=== PATIENT | male | born 1985 | race Caucasian/White ===

== ENCOUNTER 2021-07-17 14:46 | Emergency (ER) | payer OTHER ==
[~2021-07-17 14:46] MED LIST: COREG 3.125M3.125 MG PO; DIGITEK125 MCG PO; ELAVIL25 MG PO; K-DUR20 MEQ PO; LASIX40 MG PO; ZESTRIL5 MG PO
[2021-07-19 22:09] LABS: CHLAMYDIA TRACHOMATIS, NAA Negative (Negative); NEISSERIA GONORRHOEAE, NAA Negative (Negative)
== END 2021-07-17 16:17 | disposition home or self-care (01) ==
LOC: FER 14:46
PROVIDERS: Physician Assistant
DX: Z20.2 Contact with and (suspected) exposure to infections with a predominantly sexual mode of transmission (principal); I48.91 Unspecified atrial fibrillation; F17.200 Nicotine dependence, unspecified, uncomplicated; Z79.899 Other long term (current) drug therapy
CPT/HCPCS: 87491; 87591; 99283; J0696